=== PATIENT | female | born 1950 | race Caucasian/White ===

== ENCOUNTER → 2023-08-23 13:33 | Outpatient (REF) | payer MEDICARE, BC, SELFPAY | LOC: HWWDC 13:33 | PROVIDERS: ATTENDING PHYSICIAN Family Medicine | DX: Z12.31 Encounter for screening mammogram for malignant neoplasm of breast (principal) | CPT/HCPCS: 77063; 77067 ==

== ENCOUNTER → 2024-08-24 08:04 | Outpatient (REF) | payer MEDICARE, BC, SELFPAY | LOC: HWWDC 08:04 | PROVIDERS: ATTENDING PHYSICIAN Family Medicine | DX: Z12.31 Encounter for screening mammogram for malignant neoplasm of breast (principal) | CPT/HCPCS: 77063; 77067 ==